=== PATIENT | female | born 1995 | race American Indian/Alaskan Native ===

== ENCOUNTER 2017-07-11 13:26 | Emergency (ER) | payer OTHER ==
[2017-07-11 13:35] VITALS: BP 108/70
[2017-07-11] MEDS ORDERED: MOTRIN PO ONE (14:08)
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
== END 2017-07-11 14:38 | disposition home or self-care (01) ==
LOC: ED 13:26
DX: S13.4XXA Sprain of ligaments of cervical spine, initial encounter (principal); Z88.0 Allergy status to penicillin; V89.2XXA Person injured in unspecified motor-vehicle accident, traffic, initial encounter; Y93.89 Activity, other specified; Y99.8 Other external cause status; Y92.410 Unspecified street and highway as the place of occurrence of the external cause
CPT/HCPCS: 99282